=== PATIENT | female | born 2005 | race Caucasian/White ===

== ENCOUNTER 2025-06-26 13:23 | Emergency (ER) | payer BC, SELFPAY ==
[2025-06-26 13:34] VITALS: BP 153/90; PULSE 56; RESP 16; TEMP 36.4; O2SAT 100; BMI 19.5
--- NOTE | 2025-06-26 16:19 | ED.WOUNDLAC ---
HPI - Wound/Laceration General Chief Complaint: Wound/Laceration Stated Complaint: Lt hand thumb laceration Time Seen by Provider: 06/26/25 13:34 History of Present Illness HPI narrative: Otherwise healthy 19-year-old young woman who cut her left thumb with a sharp bread knife last night. Wound is still not closed by today and they come in for evaluation. Related Data Allergies Allergy/AdvReac Type Severity Reaction Status Date / Time No Known Drug Allergies Allergy Verified 06/26/25 13:34 Review of Systems Review of Systems Narrative: Pertinent positive and negative findings as per HPI Exam Initial Vital Signs Initial Vital Signs: Vital Signs Temperature 97.6 F 06/26/25 13:34 Pulse Rate 56 L 06/26/25 13:34 Respiratory Rate 16 06/26/25 13:34 Blood Pressure 153/90 H 06/26/25 13:34 Pulse Oximetry 100 06/26/25 13:34 Oxygen Delivery Method Room Air 06/26/25 13:34 General: Alert appropriate in no acute distress Respiratory: Able to speak in full sentences, no obvious respiratory distress Skin: No obvious rashes, warm and dry Neurologic: Grossly intact no obvious asymmetries or abnormalities Psych: appropriate insight and affect, cooperative Extremity: Ulnar aspect of the thumb has a 2 cm laceration over the DIPJ that does not include the nail bed. Procedures Laceration Repair thumb laceration: Time of procedure: 16:00 Site: hand Side (If applicable): left Size (cm): 2 Description: linear Depth: simple, single layer Local Anesthetic: lidocaine 1% Amount of anesthesia used (mL): 1 Pre-repair: wound explored and irrigated extensively Skin layer closed with: nylon Skin layer suture size: 4-0 Number of sutures: 3 Technique: simple, interrupted Course Orders Ordered: Discontinued Medications Bacitracin (Bacitracin Oint 0.9 Gm Pckt) 1 applic TOP NOW ONE Stop: 06/26/25 16:13 Vital Signs Vital signs: Vital Signs - 8 hr 06/26/25 13:34 Temperature 97.6 F Pulse Rate 56 L Respiratory Rate 16 Blood Pressure 153/90 H Pulse Oximetry 100 Oxygen Delivery Method Room Air MDM - Wound/Laceration MDM Narrative Medical decision making narrative: 19-year-old woman with laceration to the left thumb almost 12 hours old. She is otherwise healthy. At his sleep enough that is sutures are indicated. We talked about delayed laceration and risk for infection. I believe that is quite low and antibiotics orally are not indicated. Three sutures were placed without complication. Recommended they be removed on or about July 04. With topical antibiotic ointment and simple dressing over the wound. Reviewed reasons to return to the emergency department. There was no indication for further imaging or further medical workup and she is safe for discharge Discharge Plan Departure Patient Disposition: Home Clinical Impression: Laceration Instructions: DI for Laceration Repair Activity Restrictions/Additional Instructions: thank you for coming in today You will need to have your stiches removed on or about Jul 04. If it seems like it is becoming infected at all, redness, drainage increasing pain you need to be seen and re-evaluated Please keep some antibiotic ointment and a Band-Aid over the wound If you find that you are getting worse or develop any new symptoms, please feel free to return to the emergency department for further evaluation. Stand Alone Forms: Patient Portal/API
[2025-06-26] MEDS: BACITRACIN OINT 0.9 GM PCKT 1 APPLIC TOP (16:20)
== END 2025-06-26 16:24 | disposition home or self-care (01) ==
PROVIDERS: Emergency Provider Emergency Medicine
DX: S61.012A Laceration without foreign body of left thumb without damage to nail, initial encounter (principal); W26.0XXA Contact with knife, initial encounter
CPT/HCPCS: 12001; 99283